=== PATIENT | female | born 1965 | race Caucasian/White ===

== ENCOUNTER → 2019-09-22 08:13 | Outpatient (BNVA) | payer BC, SELFPAY | PROVIDERS: Family Provider Family Medicine; PCP Family Medicine; Visit Provider Internal Medicine Rheumatology | DX: M05.79 Rheumatoid arthritis with rheumatoid factor of multiple sites without organ or systems involvement (principal); Z79.899 Other long term (current) drug therapy; M79.7 Fibromyalgia; E10.9 Type 1 diabetes mellitus without complications; Z79.4 Long term (current) use of insulin | CPT/HCPCS: 36415; 80053; 99214 ==

== ENCOUNTER → 2019-09-22 08:58 | Outpatient (BNVA) | payer BC, SELFPAY | PROVIDERS: Family Provider Family Medicine; PCP Family Medicine; Visit Provider Internal Medicine Rheumatology | DX: M05.79 Rheumatoid arthritis with rheumatoid factor of multiple sites without organ or systems involvement (principal); Z51.81 Encounter for therapeutic drug level monitoring; M79.7 Fibromyalgia; M06.9 Rheumatoid arthritis, unspecified | CPT/HCPCS: 85025 ==

== ENCOUNTER → 2020-01-19 10:48 | Outpatient (BNVA) | payer BC, SELFPAY | PROVIDERS: Family Provider Family Medicine; PCP Family Medicine; Visit Provider Internal Medicine Rheumatology | DX: M05.79 Rheumatoid arthritis with rheumatoid factor of multiple sites without organ or systems involvement (principal); Z11.59 Encounter for screening for other viral diseases; Z79.899 Other long term (current) drug therapy; M79.7 Fibromyalgia; K50.90 Crohn's disease, unspecified, without complications; E11.9 Type 2 diabetes mellitus without complications; Z79.4 Long term (current) use of insulin | CPT/HCPCS: 36415; 80076; 81001; 82306; 82570; 84156; 84439; 84443; 86160; 86704; 99214 ==

== ENCOUNTER 2020-02-10 10:40 | Outpatient (CLI) | payer BC, SELFPAY ==
--- NOTE | 2020-02-10 10:46 | XR_ITS ---
WS: [id number] LEFT SHOULDER: 1 VIEW(S) TECHNIQUE: AP. HISTORY: rheumatoid arthritis COMPARISON: None available. No fracture or dislocation or soft tissue abnormality. Mild narrowing of the AC joint. Loss of the normal cortex overlying the distal clavicle. Very minimal subchondral cystic changes or erosions in the distal clavicle. Calcifications at the LEFT hilum. XR/XR shoulder LT 1V 99771 IMPRESSION: Early erosions or subchondral cystic changes distal clavicle.
--- NOTE | 2020-02-10 10:46 | XR_ITS ---
WS: [id number] LEFT HAND: 3 VIEW(S) TECHNIQUE: PA, oblique and lateral. HISTORY: rheumatoid arthritis COMPARISON: None available. No acute fracture or dislocation. No soft tissue or bone abnormality. No erosions. XR/XR hand LT min 3V* 35092 IMPRESSION: Normal LEFT hand.
--- NOTE | 2020-02-10 10:46 | XR_ITS ---
WS: [id number] CHEST 2 VIEWS HISTORY: rheumatoid arthritis COMPARISON: 06/14/2014 Lungs: Clear with no abnormality. No pleural effusion or pneumothorax. Cardiac size: Normal. Mediastinum/Aorta: Calcified lymph nodes at the LEFT hilum. Bones: Normal. Prior cholecystectomy. XR/XR chest 2V* 23987 IMPRESSION: Negative chest radiograph.
--- NOTE | 2020-02-10 10:46 | XR_ITS ---
WS: [id number] RIGHT HAND: 3 VIEW(S) TECHNIQUE: PA, oblique and lateral. HISTORY: rheumatoid arthritis COMPARISON: None available. No acute fracture or dislocation. No soft tissue or bone abnormality. Mild narrowing of the fifth DIP joint. XR/XR hand RT min 3V* [id number] IMPRESSION: No evidence for rheumatoid arthritis.
--- NOTE | 2020-02-10 10:46 | XR_ITS ---
WS: [id number] PELVIS: AP VIEW SUBMITTED HISTORY: rheumatoid arthritis COMPARISON: None available. Bones and soft tissues of the pelvis are intact. No fracture or dislocation. XR/XR pelvis 1-2V* 35111 IMPRESSION: Negative pelvis.
--- NOTE | 2020-02-10 10:46 | XR_ITS ---
WS: [id number] LEFT FOOT: 3 VIEW(S) TECHNIQUE: AP, oblique and lateral. HISTORY: rheumatoid arthritis COMPARISON: None available. No acute fracture or dislocation. Normal tarsal/metatarsal alignment. 3 mm lytic nodule erosion in the third cuneiform. No erosions at the metatarsal heads. Small calcaneal spur. XR/XR foot LT min 3V* 89898 IMPRESSION: 1. 4 mm erosion or lytic lesion third cuneiform. 2. No erosions involving the metatarsal heads.
--- NOTE | 2020-02-10 10:46 | XR_ITS ---
WS: [id number] LUMBAR SPINE: 3 VIEWS TECHNIQUE: AP, lateral and L5-S1 spot. HISTORY: rheumatoid arthritis COMPARISON: None available. Mild LEFT convex curvature lumbar spine. No fractures. Disc spaces are preserved. Pedicles are all id entified. No loss of disc space or vertebral body height. SI joints are symmetric bilaterally. No soft tissue abnormalities. Moderate vascular calcification in aorta and iliac arteries. Prior cholecystectomy. XR/XR lumbar spine 2-3V* 76329 IMPRESSION: 1. Mild LEFT convex curvature lumbar spine. 2. Moderate atherosclerosis aorta and iliac arteries. 3. Prior cholecystectomy.
--- NOTE | 2020-02-10 10:46 | XR_ITS ---
WS: [id number] RIGHT FOOT: 3 VIEW(S) TECHNIQUE: AP, oblique and lateral. HISTORY: rheumatoid arthritis COMPARISON: None available. No acute fracture or dislocation. Normal tarsal/metatarsal alignment. No soft tissue abnormality or bone destruction. XR/XR foot RT min 3V* 65047 IMPRESSION: Normal RIGHT foot.
--- NOTE | 2020-02-10 10:46 | XR_ITS ---
WS: [id number] RIGHT SHOULDER: 1 VIEW(S) TECHNIQUE: AP. HISTORY: rheumatoid arthritis COMPARISON: None available. No fracture or dislocation or soft tissue abnormality. Mild narrowing of the AC joint. Loss of the normal cortex with subcortical cystic changes at the dist al clavicle and acromion. Small osteophytes. XR/XR shoulder RT 1V 91969 IMPRESSION: Small subchondral cysts or erosions involving the distal clavicle and adjacent acromion.
== END 2020-02-10 10:41 | disposition home or self-care (01) ==
PROVIDERS: Family Provider Family Medicine; PCP Family Medicine; Visit Provider Internal Medicine Rheumatology
DX: M06.9 Rheumatoid arthritis, unspecified (principal); I70.0 Atherosclerosis of aorta; I70.8 Atherosclerosis of other arteries
CPT/HCPCS: 71046; 72100; 72170; 73020; 73130; 73630

== ENCOUNTER → 2020-04-20 10:26 | Outpatient (BNVA) | payer BC, SELFPAY | PROVIDERS: Family Provider Family Medicine; PCP Family Medicine; Visit Provider Internal Medicine Rheumatology | DX: M06.09 Rheumatoid arthritis without rheumatoid factor, multiple sites (principal); Z79.899 Other long term (current) drug therapy; K50.90 Crohn's disease, unspecified, without complications; M79.7 Fibromyalgia; E55.9 Vitamin D deficiency, unspecified; Z79.4 Long term (current) use of insulin; F17.210 Nicotine dependence, cigarettes, uncomplicated; E10.9 Type 1 diabetes mellitus without complications | CPT/HCPCS: 36415; 80076; 82306; 82565; 85025; 85651; 86140; 99214 ==

== ENCOUNTER → 2020-10-23 12:51 | Outpatient (BNVA) | payer BC, SELFPAY | PROVIDERS: Family Provider Family Medicine; PCP Family Medicine; Visit Provider Internal Medicine Rheumatology | DX: M06.09 Rheumatoid arthritis without rheumatoid factor, multiple sites (principal); Z79.899 Other long term (current) drug therapy; K50.90 Crohn's disease, unspecified, without complications; M79.7 Fibromyalgia; E55.9 Vitamin D deficiency, unspecified; Z79.4 Long term (current) use of insulin; E11.9 Type 2 diabetes mellitus without complications; F17.210 Nicotine dependence, cigarettes, uncomplicated | CPT/HCPCS: 36415; 85025; 99214 ==

== ENCOUNTER → 2021-02-27 14:14 | Outpatient (BNVA) | payer BC, SELFPAY | PROVIDERS: Family Provider Family Medicine; PCP Family Medicine; Visit Provider Internal Medicine Rheumatology | DX: M06.09 Rheumatoid arthritis without rheumatoid factor, multiple sites (principal); K50.90 Crohn's disease, unspecified, without complications; Z79.899 Other long term (current) drug therapy; E11.9 Type 2 diabetes mellitus without complications; Z79.4 Long term (current) use of insulin; R07.81 Pleurodynia; F17.210 Nicotine dependence, cigarettes, uncomplicated | CPT/HCPCS: 99214 ==

== ENCOUNTER → 2021-06-28 09:09 | Outpatient (BNVA) | payer BC, SELFPAY | PROVIDERS: Family Provider Family Medicine; PCP Family Medicine; Visit Provider Internal Medicine Rheumatology | DX: M06.09 Rheumatoid arthritis without rheumatoid factor, multiple sites (principal); K50.90 Crohn's disease, unspecified, without complications; M79.7 Fibromyalgia; F41.9 Anxiety disorder, unspecified; F32.A Depression, unspecified; Z79.899 Other long term (current) drug therapy; F17.210 Nicotine dependence, cigarettes, uncomplicated | CPT/HCPCS: 99214 ==

== ENCOUNTER → 2021-11-05 14:59 | Outpatient (BNVA) | payer BC, SELFPAY | PROVIDERS: Family Provider Family Medicine; PCP Family Medicine; Referring Provider Family Medicine; Visit Provider Specialist | DX: G56.02 Carpal tunnel syndrome, left upper limb (principal); M25.532 Pain in left wrist | CPT/HCPCS: 73110 ==

== ENCOUNTER 2025-04-30 10:59 | Emergency (ER) | payer BC, SELFPAY ==
--- OUTSIDE RECORDS SUMMARY | 2024-10-14 04:00 | XMS_ITS ---
Author Organization [facility] Address [address] [place] [address] Care Team Providers Care Watch Leader Name Role Phone Gio MEANS, Terrence Primary Care Provider Unavail Liliana Pompa [phone] Encounters Encounter Location Date Provider Diagnosis [facility] [address] [place] [address] 10/14/2024 Liliana Salazar Plan Of Treatment Next Appt Details Provider Name:Liliana dewey, 05/11/2025 08:30:00 AM, [address], [place], [address], Progress Notes * Vivian KIRKPATRICK KDOB:1965 (59 yo F)Acc No.[id number]:10/14/2024 Progress Notes Patient: Vivian Brunner Provider: Vicenta Salazar APRN :1965 A ge:59 Y S ex:Female Date:10/14/2024 Address:[address] [place] [address] [place], [id number] Pcp:Terrence Powers MD Care Plan Details* * Electronic signature of Liliana Salazar APRN on 04/30/2025 at 11:03 AM CDT Sign off status: Pending * Provider: Vicenta Salazar APRN Date: 0 10/14/2024 Generated for Printi ng/Faxing/eTransmitting on: 0 04/30/2025 11:03 AM CDT
--- OUTSIDE RECORDS SUMMARY | 2024-11-05 04:30 | XMS_ITS ---
Author Organization [facility] Address [address] [place] [address] Care Team Providers Care Ballpoint Pens Assembler Name Role Phone Gio MEANS, Terrence Primary Care Provider Unavail Liliana Pompa [phone] REASON FOR VISIT [phone] Encounters Encounter Location Date Provider Diagnosis [facility] [address] [place] [address] 11/05/2024 Liliana Salazar Plan Of Treatment Next Appt Details Provider Name:Liliana dewey, 05/11/2025 08:30:00 AM, [address] [place], [address], Progress Notes * Vivian KIRKPATRICK KDOB:1965 (59 yo F)Acc No.[id number]:11/05/2024 Progress Notes Patient: Alexandra pagemadhuri Vivian Jones Provider: Vicenta Salazar APRN :1965 A ge:59 Y S ex:Female Date:11/05/2024 Address:[address] [place], [place] [address], [id number] Pcp:Terrence Powers MD Subjective: * Chief Complaints: * [phone] [phone] Billing Information: * Procedure Codes: * Electronic signature of Liliana Salazar APRN on 04/30/2025 at 11:03 AM CDT Sign off status: Pending * Provider: Vicenta Salazar APRN Date: 0 11/05/2024 Generated for Printi ng/Faxing/eTransmitting on: 0 04/30/2025 11:03 AM CDT
[2025-04-30 11:02] VITALS: BP 101/65; PULSE 89; RESP 18; TEMP 36.7; O2SAT 98; BMI 22.6
--- OUTSIDE RECORDS SUMMARY | 2025-04-30 11:03 | XMS_ITS | Patient Health Record ---
Author Organization [facility] Address [address] [place] [address] Care Team Providers Care Mapping Editor Name Role Phone Terrence Powers MD Primary Care Provider Unavail able Liliana Salazar Unavailable [phone] Allergies Allergen (clinical drug ingredient) Drug/Non Drug Allergy documented on EMR Reaction Allergy Type Onset Date Status aspirin / citric acid / sodium bicarbonate Radhika-Waldoboro Unknown Drug Allergy Active Substance with sulfonamide structure and antibacterial mechanism of action (substance) Sulfa Antibiotics Unknown Drug Allergy Active Results Component Value Reference Range Flag Notes T3-Total 33140 (Not yet revi ewed by provider) Interpretation: Performing Lab: Notes/Report: T3-Total 1.04 .60-1.81 ng/mL Microalbumin (U) Random 8204 3 (Not yet reviewed by provider) Interpretation: Performing Lab: Notes/Report: Ur Microalbumin <3.0 .0-30.0 MG/L Ur Creat 58.9 29.0-226.0 Mal/Crea/Ratio <5.1 .0-30.0 mg Alb/g Cr Hemoglobin A1c 11338 (Not ye t reviewed by provider) Interpretation: Performing Lab: Notes/Report: Hgb A1c 7.1 3.8-6.4 % HI Interpretation Of Hgb A1c: 4.5-6.2 % nondiabetics. >7.0 % diabetics. EAG 157 NA Estimated Aver age Glucose(EAG). Hemoglobin A1c 25260 Reviewed date:07/27/2024 08:34:39 AM Interpretation: Performing Lab: Notes/Report: Hgb A1c 7.1 3.8-6.4 % HI Interpretation Of Hgb A1c: 4.5-6.2 % nondiabetics. >7.0 % diabetics. EAG 157 NA Estimated Aver age Glucose(EAG). Vitamin D Total (B) 72000 Reviewed date:07/27/2024 08:34:47 AM Interpretation: Performing Lab: Notes/Report: Vitamin D Total 37.1 30.0-100.0 ng/mL Performed on the Siemens Atellica IM Analyzer Insufficiency: 20? < 30 ng/mL Deficiency: < 20 ng/mL Sufficiency: 30?100 ng/mL Vitamin B12 (B) 35378 Reviewed date:07/27/2024 08:34:52 AM Interpretation: Performing Lab: Notes/Report: [id number] 897 211-911 pg/mL Vitamin D Total (B) 87303 (N ot yet reviewed by provider) Interpretation: Performing Lab: Notes/Report: Vitamin D Total 38.0 30.0-100.0 ng/mL Performed on the Siemens Atellica IM Analyzer Insufficiency: 20??? < 30 ng/mL Sufficiency: 30???100 ng/mL Deficiency: < 20 ng/mL T4 [id number] (Not yet review ed by provider) Interpretation: Performing Lab: Notes/Report: Free T4 1.26 0.89-1.76 NG/DL Vitamin B12 (B) 42005 (Not y et reviewed by provider) Interpretation: Performing Lab: Notes/Report: [id number] 667 211-911 pg/mL Reason For Referral No Information Medications Medication SIG (Take, Route, Frequency, Duration) Notes Start Date End Date Status Gabapentin 800 MG Tablet 1 tablet Orally Three times a day Active Glucagon Emergency 1 MG Kit as directed Injection Not-[facility] Dexcom G7 Sensor - Miscellaneous as directed, change every 10 days; Duration: 30 days Dx: E10.65 02/08/2025 Active DULoxetine HCl 60 MG Capsule Delayed Release Sprinkle 1 capsule Orally Once a day Active Dexcom G7 Sensor - Miscellaneous as directed in vitro change every 10 days; Duration: 90 days Not-Taking HYDROcodone-Acetaminop hen 10-300 MG Tablet 1 tablet as needed Orally every 6 hrs Active Levemir FlexPen 100 UNIT/ML Solution Pen-injector 10 units Subcutaneous BID Not-Taking NovoLOG FlexPen 100 UNIT/ML Solution Pen-injector 5-15 Units with meals and as needed Subcutaneous QID; Duration: 90 days Dx: E10.65 Active Levothyroxine Sodium 75 MCG Tablet 1 tablet in the morning on an empty stomach Orally Once a day Active ALPRAZolam 1 MG Tablet 1 tablet Orally f our times a day Active Tresiba FlexTouch 100 UNIT/ML Solution Pen-injector Inject 22 units Subcutaneous Once Daily; Duration: 90 days Active B Complex - Capsule as directed Orally Active traMADol HCl 50 MG Tablet 1 tablet as needed Orally Once a day Active Zofran 4 MG Tablet 1 tablet Orally Q4-6 hours Active Biotin 5000 MCG Tablet 1 tablet Orally O nce a day Active Womens Multivitamin Active Carisoprodol 350 MG Tablet 1 tablet as needed Orally Three times a day Active Vitamin D Active Dexcom G7 Sensor - Miscellaneous as directed SQ Change every 10 days; Duration: 90 days Dx: E10.65 12/04/2022 Active Immunizations Vaccine Route Administration Date Status Comme nts Fluarix Quadrivalent IM Intramuscular 06/26/2023 Administe red Social History Tobacco Use: Social History Observation Description Date Details (start date - stop date) Current Smoker NA - NA Social History Tobacco Use: Social Info Question Answer Notes Tobacco Control (Standard) Tobacco use: Current smoker How often do you smoke cigarettes? Every day How many cigarettes a day do you smoke? 21-30 How soon after you wake up do you smoke your first cigarette? Within 5 minutes Are you interested in quitting? Not ready to quit Problems Problem Type SNOMED Code ICD Code Onset Dates Problem Status W/U Status Risk Notes Problem Hyperglycemia due to type 1 diabetes mellitus (638375117048433) Type 1 diabetes mellitus with hyperglycemia (E10.65) Active confirmed Problem Type I diabetes mellitus without complication (126307809) Type 1 diabetes mellitus without complication (E10.9) Active confirmed Problem Hypothyroidism (22696897) Hypothyroidism, unspecified type (E03.9) Active confirmed Problem Stress at home (592992534) Stress at home (F43.9) Active confirmed Problem Long-term current use of insulin (002689410) Current use of insulin (Z79.4) Active confirmed Vital Signs Heart Rate 78 /min 02/08/2025 Blood pressure diastolic 67 mm Hg 02/08/2025 Oximetry 95 % 02/08/2025 Height-cm 168.91 cm 02/08/2025 Weight-kg 65.77 kg 02/08/2025 Height 66.5 in 02/08/2025 Blood pressure systolic 117 mm Hg 02/08/2025 Weight 145 lbs 02/08/2025 BMI 23.05 kg/m2 02/08/2025 Encounters Encounter Location Date Provider Diagnosis [address] [place] [address] 07/16/2024 Liliana Salazar Type 1 diabetes mellitus with hyperglycemia E10.65 ; Current use of insulin Z79.4 ; Uses self-applied continuous glucose monitoring device Z97.8 ; Cough R05.9 and Congestion of nasal sinus R09.81 [facility] [address] [place] [address] 02/08/2025 Liliana Salazar Type 1 diabetes mellitus with hyperglycemia E10.65 ; Current use of insulin Z79.4 ; Uses self-applied continuous glucose monitoring device Z97.8 ; At risk for hypoglycemia Z91.89 and Hypothyroidism, unspecified type E03.9 [address] [place] [address] 07/16/2024 Liliana Salazar [facility] [address] [place] [address] 11/05/2024 Liliana Salazar Type 1 diabetes mellitus with hyperglycemia E10.65 [address] [place] [address] 02/10/2025 Liliana Hagergeorge Assessments Encounter Date Diagnosis (ICD Code) Assessment Notes Treatment Notes Treatment Clinical Notes Section Notes 07/16/2024 Type 1 diabetes mellitus with hyperglycemia (ICD-10 - E10.65) Dexcom G7 data download complete, information interpreted and reviewed with patient. The patient has an average blood glucose of 172 mg/dL with most hyperglycemia noted after meals. She reports that her blood glucose levels have been up since has been sick lately with cough and congestion, but this is resolving. Advised her to treat symptoms, push fluids and please call if symptoms worsen or persist. Encouraged patient to continue to take all medications as directed, follow a low carbohydrate diet, eat low carbohydrate snacks and drink only non-calorie beverages. Patient verbalizes understanding of all instructions and all questions are answered. Patient agrees to follow up with her primary care clinic as directed and with [facility] in three months or PRN. Total time is 30 minutes 07/16/2024 Current use of insulin (ICD-10 - Z79.4) 11/05/2024 Type 1 diabetes mellitus with hyperglycemia (ICD-10 - E10.65) 02/08/2025 Type 1 diabetes mellitus with hyperglycemia (ICD-10 - E10.65) Dexcom G7 data download complete, information interpreted and reviewed with patient. The patient has an average blood glucose of 187 mg/dL with most hyperglycemia noted after meals. She reports having all medications needed and a glucagon rescue kit for hypoglycemia. Encouraged patient to continue to take all medications as directed in increase frequency of the NovoLog as needed until her average is closer to 150mg/dL. She does follow a low carbohydrate diet, eats low carbohydrate snacks and drinks only water and non-calorie beverages. Labs are ordered and pending for May follow up. Patient verbalizes understanding of all instructions and all questions are answered. Patient agrees to follow up with her primary care clinic as directed and with [facility] clinic in three months or PRN. Total time is 30 minutes. 02/08/2025 Current use of insulin (ICD-10 - Z79.4) 02/08/2025 Uses self-applied continuous glucose monitoring device (ICD-10 - Z97.8) 07/16/2024 Uses self-applied continuous glucose monitoring device (ICD-10 - Z97.8) 07/16/2024 Cough (ICD-10 - R05.9) 02/08/2025 At risk for hypoglycemia (ICD-10 - Z91.89) 02/08/2025 Hypothyroidism, unspecified type (ICD-10 - E03.9) 07/16/2024 Congestion of nasal sinus (ICD-10 - R09.81) Plan Of Treatment Pending Test Test Name Order Date CBC w\ Auto Diff 14767 09/26/2023 CBC w\ Auto Diff 20052 04/09/2024 CBC w\ Auto Diff 85383 02/08/2025 Comprehensive Metabolic Panel (CMP) 8005 3 02/08/2025 Comprehensive Metabolic Panel (CMP) 8005 3 09/26/2023 Comprehensive Metabolic Panel (CMP) 8005 3 04/09/2024 Hemoglobin A1c 04447 09/26/2023 Hemoglobin A1c 75151 02/08/2025 Hemoglobin A1c 49404 04/05/2025 Hemoglobin A1c 28514 04/09/2024 Lipid Panel Reflex DLDL 30959, 80326 Lipid Panel Reflex DLDL 51954, 47241 08/2024 Thyroid Stimulating Hormone (TSH) 75221 02/08/2025 Thyroid Stimulating Hormone (TSH) 94123 04/09/2024 Thyroid Stimulating Hormone (TSH) 65083 09/26/2023 Vitamin B12 (B) 83318 04/09/2024 Vitamin B12 (B) 90114 02/08/2025 Vitamin B12 (B) 35933 04/05/2025 Vitamin D 1,25 Dihydroxy (B) 18972 02/08 Vitamin D 1,25 Dihydroxy (B) 44637 04/09 T4 [id number] 02/08/2025 T4 [id number] 04/05/2025 Vitamin D Total (B) 56288 04/05/2025 Microalbumin (U) Random 10758 04/05/2025 Microalbumin (U) Random 57933 02/08/2025 T3-Total 99112 02/08/2025 T3-Total 58279 04/05/2025 Next Appt Details Provider Name:Liliana dewey, 05/11/2025 08:30:00 AM, [address], [place], [address], Insurance Providers Payer Name Payer Address Payer Phone Subscriber Number Group Number Insured Name Patient Relationship to Insured Coverage Start Date Coverage End Date [employer] [place] [address] [place] [address] [phone] [id number] Vivian Ying Self - patient is the insured Medical (General) History Medical History History ICD Code Crohns Rheumatoid arthritis type I diabetes Surgical History Surgery Date(Month/Year) gallbladder appendix tonsils (L) cataract-lens implants (R) eye surgery with lens implant (L) cataract removal Hospitalization History Reason Date(Month/Year) ED-dehydrated 10/2024 DKA 07/02
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
[2025-04-30 11:17] VITALS: O2SAT 99
[2025-04-30] MEDS: morphine 4 mg/mL SDV 1 mL IM (11:37)
[2025-04-30] MEDS: ondansetron 2 mg/ML SDV 2 mL 4 MG IM (11:37)
[2025-04-30 12:00] VITALS: BP 111/60; PULSE 83; O2SAT 95
[2025-04-30 13:03] VITALS: BP 121/64; PULSE 78; O2SAT 94
== END 2025-04-30 13:04 | disposition home or self-care (01) ==
PROVIDERS: Emergency Provider Emergency Medicine; PCP Family Medicine
DX: M54.9 Dorsalgia, unspecified (principal); Z04.1 Encounter for examination and observation following transport accident; Z79.4 Long term (current) use of insulin; E10.9 Type 1 diabetes mellitus without complications
CPT/HCPCS: 72125; 72128; 72131; 96372; 99284; J2270; J2405